=== PATIENT | male | born 1960 | race Caucasian/White ===

== ENCOUNTER 2020-09-01 08:16 | Outpatient (REF) | payer OTHER, SELFPAY | END 2020-09-01 08:17 | disposition home or self-care (01) | LOC: HO.LAB 08:16 | PROVIDERS: PCP Internal Medicine; Visit Provider Internal Medicine | DX: Z20.828 Contact with and (suspected) exposure to other viral communicable diseases (principal) | CPT/HCPCS: 86769; C9803; U0003 ==

== ENCOUNTER 2021-01-06 08:03 | Outpatient (REF) | payer OTHER, SELFPAY ==
[2021-01-06 09:36] LABS: Alanine Aminotransferase 23 U/L (0-40); Albumin Level 4.4 g/dL (3.5-5.0); Alkaline Phosphatase 64 U/L (39-117); Anion Gap 14 (12-20); Aspartate Amino Transferase 21 U/L (5-37); Bilirubin Total 0.9 mg/dL (0.0-1.0); Blood Urea Nitrogen 13 mg/dL (9-16); Calcium 9.6 mg/dL (8.4-10.2); Carbon Dioxide 28 mmol/L (22-29); Chloride 103 mmol/L (96-108); Estimated Glomerular Filt Rate > 60; Glucose Random 113 mg/dL (60-115); Potassium 4.6 mmol/L (3.3-5.1); Sodium 140 mmol/L (135-145); Total Protein 7.1 g/dL (6.5-8.0)
== END 2021-01-06 08:04 | disposition home or self-care (01) ==
LOC: HO.LAB 08:03
PROVIDERS: PCP Internal Medicine; Referring Provider Internal Medicine; Visit Provider Student in an Organized Health Care Education/Training Program
DX: M54.42 Lumbago with sciatica, left side (principal); G89.29 Other chronic pain; M19.90 Unspecified osteoarthritis, unspecified site; M19.041 Primary osteoarthritis, right hand; M19.042 Primary osteoarthritis, left hand
CPT/HCPCS: 36415; 80053; 99212

== ENCOUNTER → 2022-02-28 07:53 | Outpatient (BNVA) | payer OTHER, SELFPAY | PROVIDERS: PCP Internal Medicine; Visit Provider Nurse Practitioner Family | DX: M54.42 Lumbago with sciatica, left side (principal); M19.041 Primary osteoarthritis, right hand; M19.042 Primary osteoarthritis, left hand; G89.29 Other chronic pain | CPT/HCPCS: 99212 ==

== ENCOUNTER → 2023-02-28 09:38 | Outpatient (BNVA) | payer OTHER, SELFPAY | PROVIDERS: PCP Internal Medicine; Visit Provider Nurse Practitioner Family | DX: M54.42 Lumbago with sciatica, left side (principal); M19.041 Primary osteoarthritis, right hand; M19.042 Primary osteoarthritis, left hand; G89.29 Other chronic pain | CPT/HCPCS: 99212 ==

== ENCOUNTER 2024-03-28 07:42 | Outpatient (AMB) | payer OTHER, SELFPAY ==
--- NOTE | 2024-03-28 07:43 | MHC.OFFVIS ---
Vital Signs 03/28/24 07:55 Weight 249 lb 12.54 oz BP 152/70 H Blood Pressure Location Rt brachial Position Sitting Pulse 57 Pulse Source Pulse Oximeter Pulse Oximetry (%) 98 Oxygen Delivery Method Room Air Intake Visit Reasons: back pain Intake Note: Patient last seen by Chelo Granados 02/28/23 presents today for follow up. 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 He was last seen by Nilsa Granados 02/2023. Patient states that his symptoms are stable for the most part. Continues to have back pain. Stated that he had spinal surgery and further surgeries suggested by his spine surgeon and he is thinking about it. He remains on gabapentin 300 mg Twice daily. [facility] Medical History Inguinal hernia Osteoarthritis Lumbago with sciatica Carpal tunnel syndrome Diverticulitis Chronic back pain Arthritis Surgical History History of back surgery H/O arthroscopy of left knee History of right knee joint replacement Family History Father Cancer Mother Alzheimer disease Social History Alcohol intake: current Alcohol intake frequency: a few times a month Patient Tobacco Use Status: Current everyday Tobacco user Cigarettes Per Day: 10 Years Smoked: 47 Substance Use Type: Marijuana Review of Systems [facility] [place] Reports back pain Physical Exam Vital Signs: Last Vital Signs Pulse 57 03/28/24 07:55 BP 152/70 H 03/28/24 07:55 Pulse Ox 98 03/28/24 07:55 Oxygen Delivery Method Room Air 03/28/24 07:55 Const General: cooperative, healthy appearing and comfortable Nutritional Appearance: obese Orientation/consciousness: patient oriented x3 Limitations: no limitations HEENT Head: Yes normocephalic and Yes atraumatic Mouth: moist mucous membranes Back/Spine/Pelvis Other: Negative straight leg raise test bilaterally Neuro General: patient oriented x3 Extrem Other: Mild osteoarthritic changes of both hands no active synovitis Assessment & Plan Assessment & Plan (1) Degenerative disc disease, lumbar: Code(s): M51.36 - Other intervertebral disc degeneration, lumbar region Category: Medical Plan: This is a 63-year-old male with degenerative disc disease of L-spine who presents for follow-up. Continues to take gabapentin 300 mg Twice daily. Symptoms are fairly stable overall. Discussed with patient. He likely does not need routine follow-up with us. Advised patient to ask his PCP to prescribe gabapentin. If patient returns for a follow-up visit next year, check CMP before the visit Plan I spent minutes reviewing patient's chart, evaluating patient, ordering diagnostic workup, counseling patient and documenting in the chart Orders: Orders Comprehensive Met. Panel 1 Year M19.041 - Primary osteoarthritis, right hand, M19.042 - Primary osteoarthritis, left hand Coding Level of Care Code Est Pt Level 3 (54588) Diagnoses Degenerative disc disease, lumbar M51.36
[2024-03-28 07:55] VITALS: BP 152/70; PULSE 57; O2SAT 98
== END 2024-03-28 08:04 | disposition home or self-care (01) ==
PROVIDERS: PCP Internal Medicine; Visit Provider Student in an Organized Health Care Education/Training Program
DX: M51.36 Other intervertebral disc degeneration, lumbar region (principal)
CPT/HCPCS: 99213

== ENCOUNTER → 2024-03-28 07:42 | Outpatient (BNVA) | payer OTHER, SELFPAY | PROVIDERS: PCP Internal Medicine; Visit Provider Student in an Organized Health Care Education/Training Program | DX: M51.36 Other intervertebral disc degeneration, lumbar region (principal) | CPT/HCPCS: 99212 ==